=== PATIENT | male | born 1995 | race Caucasian/White ===

== ENCOUNTER 2017-12-08 12:24 | Emergency (ER) | payer BC, OTHER ==
[2017-12-08 13:21] VITALS: BP 122/78
--- NOTE | 2017-12-08 14:32 | UC ---
Skin Complaint HPI - HPI Summary HPI Summary: Pt c/o tender, red area on right upper inner thigh. - History of Current Complaint Chief Complaint: UCSkin Time Seen by Provider: 12/08/17 14:22 Stated Complaint: SKIN COMPLAINT,RIGHT LEG Hx Obtained From: Patient Onset/Duration: Gradual Onset, Lasting Days, Still Present, Worse Since - onset Skin Exposure Onset/Duration: Days Ago Timing: Constant Onset Severity: Mild Current Severity: Moderate Pain Intensity: 7 Location: Discrete - right upper inner thigh Character: Pain, Redness, Raised Aggravating Factor(s): Touch Alleviating Factor(s): Unknown Associated Signs & Symptoms: Positive: Tenderness - Allergy/Home Medications Allergies/Adverse Reactions: Allergies Allergy/AdvReac Type Severity Reaction Status Date / Time MS Azithromycin Allergy Hives Verified 12/08/17 13:16 [From MS Zithromax] Home Medications: Home Medications diPHENhydraMINE PO* [Benadryl PO 25 MG TAB*] 50 mg PO Q6H PRN 12/08/17 [History Confirmed 12/08/17] Review of Systems Constitutional: Negative Skin: Other - abscess Eyes: Negative ENT: Negative Respiratory: Negative Cardiovascular: Negative Gastrointestinal: Negative Genitourinary: Negative Motor: Negative Neurovascular: Negative Musculoskeletal: Negative Neurological: Negative Psychological: Negative Is Patient Immunocompromised?: No All Other Systems Reviewed And Are Negative: Yes PMH/Surg Hx/FS Hx/Imm Hx Previously Healthy: Yes - Surgical History Surgical History: Yes Surgery Procedure, Year, and Place: Sinus Surgery, ~2001, [place]; Tintanium Plates in Skull s/p Traumatic Fracture, ~2009, [place] - Family History Known Family History: Positive: Cardiac Disease - Social History Occupation: Employed Full-time Lives: With Family Alcohol Use: Weekly Substance Use Type: None Smoking Status (MU): Never Smoked Tobacco Have You Smoked in the Last Year: No Physical Exam Triage Information Reviewed: Yes Appearance: Well-Appearing Vital Signs: Initial Vital Signs Temp 98.7 F 12/08/17 13:13 Pulse 90 12/08/17 13:13 Resp 16 12/08/17 13:13 BP 122/78 12/08/17 13:13 Pulse Ox 100 12/08/17 13:13 Eye Exam: Normal ENT Exam: Normal Dental Exam: Normal Neck exam: Normal Cardiovascular Exam: Normal Musculoskeletal Exam: Normal Neurological Exam: Normal Psychological Exam: Normal Skin Exam: Other - quarter size, soft moveable mass, tender, erythematous with diameter ~4 cm. dry scab. Course/Dx - Course Course Of Treatment: I discussed warm compresses and epsom salt soaks with pt. I offered I & D and pt declined. Pt verbalized understanding an d agreed to plan of care. - Differential Diagnoses - Skin Complaint Differential Diagnoses: Abscess, Cellulitis, MRSA - Diagnoses Provider Diagnoses: abscess Discharge - Discharge Plan Condition: Stable Disposition: HOME Prescriptions: Cephalexin CAP* [Keflex 500 CAP*] 500 mg PO Q12H #20 cap Patient Education Materials: Abscess (ED), Warm Compress or Soak (ED) Referrals: [facility] [Outside] No Primary Care Phys,NOPCP [Primary Care Provider] -
== END 2017-12-08 14:39 | disposition home or self-care (01) ==
LOC: UCCORT 12:24
DX: L02.415 Cutaneous abscess of right lower limb (principal)
CPT/HCPCS: 99202; G0463

== ENCOUNTER 2019-05-22 16:58 | Emergency (ER) | payer BC, OTHER ==
[2019-05-22 17:41] VITALS: BP 119/75
--- NOTE | 2019-05-22 18:03 | UC ---
General HPI - HPI Summary HPI Summary: Pt presents with c/o gradual onset of fever, chills, body aches X 2 days. Pt states that he was bit by a tick in [place] and is frequently bit because works outside daily. Pt removed tick himself in February. He c/o of itchy bump at site of bite. - History of Current Complaint Chief Complaint: UCGeneralIllness Stated Complaint: TICK BITE,BODY ACHES Time Seen by Provider: 05/22/19 17:33 Hx Obtained From: Patient Onset/Duration: Gradual Onset, Lasting Days, Still Present Timing: Constant Onset Severity: Mild Current Severity: Mild Pain Intensity: 4 Associated Signs & Symptoms: Positive: Other - body aches, fever, chills - Allergy/Home Medications Allergies/Adverse Reactions: Allergies Allergy/AdvReac Type Severity Reaction Status Date / Time azithromycin Allergy Hives Verified 05/22/19 17:41 Home Medications: Home Medications buPROPion TAB* [Wellbutrin TAB*] 1 tab PO BID 05/22/19 [History Confirmed ] hydrOXYzine HCL TAB* [Atarax 25 MG TAB*] 1 tab PO ONCE PRN 05/22/19 [History Confirmed 05/22/19] PMH/Surg Hx/FS Hx/Imm Hx Previously Healthy: Yes - Surgical History Surgical History: Yes Surgery Procedure, Year, and Place: Sinus Surgery, ~ [place]. Tintanium Plates in Skull s/p Traumatic Fracture, ~2009, [place] - Family History Known Family History: Positive: Cardiac Disease - Social History Occupation: Employed Full-time Lives: With Family Alcohol Use: Weekly Substance Use Type: None Smoking Status (MU): Current Some Day Smoker Have You Smoked in the Last Year: No - Immunization History Vaccination Up to Date: Yes Review of Systems All Other Systems Reviewed And Are Negative: Yes Constitutional: Positive: Negative Skin: Positive: Other - itchy lump Eyes: Positive: Negative ENT: Positive: Negative Respiratory: Positive: Negative Cardiovascular: Positive: Negative Gastrointestinal: Positive: Negative Genitourinary: Positive: Negative Motor: Positive: Negative Neurovascular: Positive: Negative Musculoskeletal: Positive: Myalgia Neurological: Positive: Negative Psychological: Positive: Negative Is Patient Immunocompromised?: No Physical Exam Triage Information Reviewed: Yes Appearance: Well-Appearing Vital Signs: Initial Vital Signs Temp 100.2 F 05/22/19 17:33 Pulse 98 05/22/19 17:33 Resp 16 05/22/19 17:33 BP 119/75 05/22/19 17:33 Pulse Ox 100 05/22/19 17:33 Vital Signs Reviewed: Yes Eye Exam: Normal ENT Exam: Normal Dental Exam: Normal Neck exam: Normal Respiratory Exam: Normal Cardiovascular Exam: Normal Musculoskeletal Exam: Normal Neurological Exam: Normal Psychological Exam: Normal Skin Exam: Other - folliculitis right upper anterior thigh Course/Dx - Diagnoses Provider Diagnosis: Fever and chills, Myalgia, Folliculitis Discharge - Sign-Out/Discharge Documenting (check all that apply): Patient Departure All imaging exams completed and their final reports reviewed: No Studies - Discharge Plan Condition: Stable Disposition: HOME Patient Education Materials: Fever in Adults (ED), Folliculitis (ED), Safe Use of NSAIDs (ED) Referrals: No Primary Care Phys,NOPCP [Primary Care Provider] - [facility] [Outside] - Billing Disposition and Condition Condition: STABLE Disposition: Home
== END 2019-05-22 18:15 | disposition home or self-care (01) ==
LOC: UCCORT 16:58
DX: M79.10 Myalgia, unspecified site (principal); L73.9 Follicular disorder, unspecified; Z88.1 Allergy status to other antibiotic agents; F17.210 Nicotine dependence, cigarettes, uncomplicated
CPT/HCPCS: 36415; 86618; 99211; G0463